=== PATIENT | female | born 1955 | race Caucasian/White ===

== ENCOUNTER 2018-07-30 07:24 | Day surgery (SDC) | payer MEDICARE, OTHER ==
[~2018-07-30] VITALS: Ht 160 cm; Wt 81.8 kg
[~2018-07-30 07:24] MED LIST: ACTOS 15MG TAB15 MG PO; AMBIEN 10MG10 MG PO; BUSPAR10 MG PO; CLEOCIN HC150 MG/CAP PO; FLONASE NASAL S16 GM NS; KLONOPIN 0.5MG0.5 MG PO; KLOR-CON M2020 MEQ PO; LAMICTAL150 MG PO; LIPITOR20 MG PO; MINIPRESS 1M1 MG/CAP PO; PERCOCET 325 MG1 TA2 PO; PERIACTIN 4MG TA4 MG PO; PROZAC 20MG20 MG PO; TOPAMAX50 MG PO; WELLBUTRIN SR150 M1 PO
[2018-07-30 08:04] VITALS: BP 127/74; PULSE 86; TEMP 98.2
[2018-07-30 09:10] VITALS: BP 115/69; PULSE 76; TEMP 98.3
[2018-07-30 09:25] VITALS: BP 115/69; PULSE 71
[2018-07-30 09:40] VITALS: BP 126/72; PULSE 70; TEMP 98.2
== END 2018-07-30 09:45 | disposition home or self-care (01) ==
LOC: SDCO 07:24
DX: Z12.11 Encounter for screening for malignant neoplasm of colon (principal); D12.3 Benign neoplasm of transverse colon; K63.5 Polyp of colon; K57.30 Diverticulosis of large intestine without perforation or abscess without bleeding; F17.210 Nicotine dependence, cigarettes, uncomplicated; G43.909 Migraine, unspecified, not intractable, without status migrainosus; Z96.653 Presence of artificial knee joint, bilateral; Z88.0 Allergy status to penicillin; Z88.5 Allergy status to narcotic agent; Z88.1 Allergy status to other antibiotic agents; Z88.2 Allergy status to sulfonamides; Z86.008 Personal history of in-situ neoplasm of other site
CPT/HCPCS: J2704; J7030

== ENCOUNTER → 2019-10-03 | Outpatient (CLI) | payer MEDICARE | LOC: BHSO 10:52 | DX: F43.10 Post-traumatic stress disorder, unspecified (principal) ==

== ENCOUNTER → 2019-10-30 | Outpatient (CLI) | payer MEDICARE | LOC: BHSO 15:11 | DX: F43.10 Post-traumatic stress disorder, unspecified (principal) | CPT/HCPCS: G0463 ==

== ENCOUNTER → 2020-01-01 | Outpatient (CLI) | payer MEDICARE | LOC: BHSO 14:41 | DX: F43.10 Post-traumatic stress disorder, unspecified (principal) | CPT/HCPCS: G0463 ==

== ENCOUNTER → 2020-07-01 | Outpatient (CLI) | payer MEDICARE | LOC: BHSO 14:49 | DX: F43.10 Post-traumatic stress disorder, unspecified (principal) | CPT/HCPCS: G0463 ==